=== PATIENT | male | born 1995 | race Two or more races ===

== ENCOUNTER 2017-07-18 23:46 | Emergency (ER) | payer OTHER ==
[~2017-07-18] VITALS: Ht 177.8 cm; Wt 90.2 kg
[2017-07-18 23:48] VITALS: BP 143/71
[2017-07-19 00:34] LABS: BASOPHILS # (AUTO) 0.06 x10^3/uL (0-0.1); BASOPHILS % (AUTO) 1 % (0-1); EOSINOPHILS # (AUTO) 0.22 x10^3/uL (0-0.4); EOSINOPHILS % (AUTO) 2 % (1-7); LYMPHOCYTES # (AUTO) 2.34 x10^3/uL (1-3.4); LYMPHOCYTES % (AUTO) 23 % (22-44); MD NO; MEAN CORPUSCULAR HEMOGLOBIN 26.6 pg (27.5-34.5); MEAN CORPUSCULAR HGB CONC 32.9 g/dL (33.2-36.2); MEAN PLATELET VOLUME 8.5 fL (7.4-10.4); MONOCYTES # (AUTO) 0.66 x10^3/uL (0.2-0.8); MONOCYTES % (AUTO) 7 % (2-9); NEUTROPHILS # (AUTO) 6.94 x10^3/uL (1.8-6.8); NEUTROPHILS % (AUTO) 68 % (42-75); PLATELET COUNT 255 x10^3/uL (130-400); RED BLOOD COUNT 4.99 x10^6/uL (4.38-5.82); RED CELL DISTRIBUTION WIDTH 13.3 % (9.4-14.8)
[2017-07-19 00:35] LABS: CULTURE INDICATED? YES; MICROSCOPIC INDICATED
[2017-07-19 00:45] LABS: ALANINE AMINOTRANSFERASE 16 U/L (12-78); ALBUMIN 3.2 g/dL (3.4-5.0); ANION GAP 4 mmol/L (5-15); CALCIUM 8.5 mg/dL (8.5-10.1); CHLORIDE 109 mmol/L (98-107); CREATININE 0.86 mg/dL (0.7-1.3)
[2017-07-19 00:47] LABS: ALKALINE PHOSPHATASE 81 U/L (45-117); BILIRUBIN,TOTAL 0.2 mg/dL (0.2-1.0); TOTAL PROTEIN 6.8 g/dL (6.4-8.2)
[2017-07-19] MEDS ORDERED: CEFTRIAXONE 1,000 MG IM ONE (02:00)
[2017-07-19] MEDS ORDERED: CEFTRIAXONE 250 MG ONE (02:21)
== END 2017-07-19 02:29 | disposition home or self-care (01) ==
LOC: ED 07-19 02:10
DX: N45.1 Epididymitis (principal)
CPT/HCPCS: 36415; 76870; 80053; 81001; 83690; 85025; 87086; 93975; 96372; 99285; J0696